=== PATIENT | male | born 1950 | race Caucasian/White ===

== ENCOUNTER 2016-10-17 14:28 | Emergency (ER) | payer OTHER ==
[2016-10-17 14:41] VITALS: BP 106/69
--- NOTE | 2016-10-17 14:43 | ED Physician Documentation ---
Upper Extremity Injury - HISTORIAN Historian: patient - HPI Stated Complaint: Right forearm imjury Chief Complaint: Upper Extremity Injury Onset: just prior to arrival Where: work Severity: mild Context: blow Further Comments: yes (66 year old male presents with right forearm injury. Patient was working when he got his arm caught between the mower and a chain link fence. Co-worker bent fence to get arm loose. Approximately 5-10 minutes , C/O swelling. Denies any pain with movement.) - ROS CONST: no problems CVS/RESP: none NEURO: none MS/SKIN/LYMPH: none GI/: denies: problems urinating, nausea, vomiting, other - PAST HX Past History: Rt handed, other (HTN, HLD) Allergies/Adverse Reactions: Allergies Allergy/AdvReac Type Severity Reaction Status Date / Time No Known Allergies Allergy Verified 10/17/16 14:42 - SOCIAL HX Smoking History: non-smoker - FAMILY HX Family History: none - VITAL SIGNS Vital Signs: Vital Signs Temp Pulse Resp BP Pulse Ox 99.2 F 128 H 16 106/69 98 10/17/16 15:21 10/17/16 15:21 10/17/16 15:21 10/17/16 15:21 10/17/16 15:21 - REVIEWED ASSESSMENTS Nursing Assessment Reviewed: Yes Vitals Reviewed: Yes ED Results Lab/Radiology - Radiology Radiology Impressions: 2 views of the right forearm History: 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 Cystic lucencies are noted at the carpal bones. No evidence of dislocation of the forearm. Ulnar styloid process is slightly indistinct. No obvious acute fracture. Impression: 1. 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 Significant osseous overlap limits evaluation. 2. No obvious acute fracture or dislocation 3. Cystic lucencies are noted in the carpal bones suggestive of degenerative changes 4. Soft tissue swelling at the right forearm. 5. Cross-sectional imaging may be done as relevant. Electronically signed on October 17, 2016 3:11:52 PM CDT by: Sofía Gibson - Orders Orders: ED Orders Category Date Time Status Apply occlusive dressing STAT Care 10/17/16 14:42 Active Cleanse with NS and Chlorhexid 1T Care 10/17/16 14:42 Active Triple Antibiotic Ointment 1T Care 10/17/16 14:42 Active FOREARM 2 VIEWS [RAD] Stat Exams 10/17/16 Completed Diph,Pertuss(Acell),Tet Vac/Pf [Adacel] Med 10/17/16 14:41 Discontinued 0.5 ml IM .ONCE ONE Upper Extremity Injury Physic - Physical Exam General Appearance: no acute distress, alert Hand: normal inspection, non-tender, no evidence of injury, normal ROM Wrist: normal inspection Elbow/Forearm: non-tender, normal ROM, deformity (mid forearm), soft tissue tenderness (forearm), swelling (Soft tissue swelling, forearm - 5 cm area) Neuro/Vascular/Tendon: no vascular compromise, motor nml, sensation nml, ROM nml Skin: warm,dry, other (abrasions x 2; forearm) Resp/CVS: chest non-tender, breath sounds nml, heart sounds nml, no resp. distress, lungs clear, reg. rate & rhythm Abdomen: non-tender, pelvis stable Discharge Clincal Impression: Abrasion, Soft tissue swelling Forearm contusion Qualifiers: Encounter type: initial encounter Laterality: right Qualified Code(s): S50.11XA - Contusion of right forearm, initial encounter Referrals: Pete Velasco MD [Primary Care Provider] - 2 Days Additional Instructions: Ice Elevation Clean the laceration twice a day with hibiclens and rinse with water clean away any scabbed area Apply thin coat of antibiotic ointment after cleaning the wound. Cover with non-adherent bandage if able. Tylenol or ibuprofen as needed for pain If you arm begins to swell or you have increased pain numbness or tingling in your fingers return to the ER. Condition: Stable Disposition: 01 HOME, SELF-CARE Decision to Admit: NO Decision Time: 15:06
[2016-10-17] MEDS: DIPH,PERTUSS(ACELL),TET VAC/PF 0.5 ML DISP.SYRIN IM ONE (15:01)
--- NOTE | 2016-10-17 15:45 | Diagnostic Imaging Report ---
JAUN HDZ (STVEE) - ER [facility] [id number] [facility] [address] [place] [address]. 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 Cystic lucencies are noted at the carpal bones. No evidence of dislocation of the forearm. Ulnar styloid process is slightly indistinct. No obvious acute fracture. Impression: 1. 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 Significant osseous overlap limits evaluation. 2. No obvious acute fracture or dislocation 3. Cystic lucencies are noted in the carpal bones suggestive of degenerative changes 4. Soft tissue swelling at the right forearm. 5. Cross-sectional imaging may be done as relevant. Electronically signed on October 17, 2016 3:11:52 PM CDT by: Sofía DE LA PAZ
== END 2016-10-17 15:21 | disposition home or self-care (01) ==
LOC: ED 14:28
DX: S50.11XA Contusion of right forearm, initial encounter (principal); W31.89XA Contact with other specified machinery, initial encounter; Y93.9 Activity, unspecified; Y99.9 Unspecified external cause status
CPT/HCPCS: 73090; 90471; 90715; 99283

== ENCOUNTER 2017-02-08 09:00 | Outpatient (CLI) | payer OTHER | END 2017-02-08 09:02 | LOC: LAB 09:00 | PROVIDERS: ATTEND Family Medicine | DX: E11.9 Type 2 diabetes mellitus without complications (principal); I10 Essential (primary) hypertension | CPT/HCPCS: 36415; 80061; 82043; 83036 ==

== ENCOUNTER 2018-11-01 13:56 | Outpatient (CLI) | payer OTHER | END 2018-11-01 13:58 | LOC: LABRHC 13:56 | PROVIDERS: ATTEND Family Medicine | DX: E11.9 Type 2 diabetes mellitus without complications (principal) | CPT/HCPCS: 36415; 80053; 83036 ==

== ENCOUNTER 2019-03-04 10:25 | Outpatient (CLI) | payer OTHER | END 2019-03-04 10:28 | LOC: LABRHC 10:25 | PROVIDERS: ATTEND Family Medicine | DX: E11.9 Type 2 diabetes mellitus without complications (principal); I10 Essential (primary) hypertension | CPT/HCPCS: 80053; 80061; 83036 ==